=== PATIENT | male | born 1985 | race Caucasian/White ===

== ENCOUNTER 2018-09-14 09:18 | Outpatient (CLI) | payer OTHER, SELFPAY ==
[2018-09-14 11:11] LABS: TSH (W/Ref FT4) 2.13 uIU/mL (0.358-3.74)
[2018-09-19 14:52] LABS: Testosterone, Free 8.76 ng/dL (4.85-19.0); Testosterone, Total 337 ng/dL (240-950)
== END 2018-09-14 09:38 ==
PROVIDERS: PCP Family Medicine; Visit Provider Family Medicine
DX: N52.9 Male erectile dysfunction, unspecified (principal)
CPT/HCPCS: 36415; 84402; 84403; 84443

== ENCOUNTER 2019-10-07 14:51 | Emergency (ER) | payer OTHER, SELFPAY ==
[2019-10-07 14:58] VITALS: BP 137/93; PULSE 78; TEMP 37.2
--- NOTE | 2019-10-07 15:21 | W.ED.GENAD ---
Discharge Plan Disposition Patient Disposition: HOME Condition: Stable Discharge Details Chief Complaint: GI Bleed Clinical Impression: Internal hemorrhoid, bleeding Primary Care Provider: Mau Dewey ED Provider: Ever Lam Home Meds and New Rx's Prescriptions: New hydrocortisone acetate [Anusol-HC] 25 mg suppository 25 mg [place] BID 10 Days Qty: 20 RF: 0 Continued omeprazole 40 mg capsule,delayed release(DR/EC) 40 mg PO DAILY Qty: 90 RF: 3 sildenafil 100 mg tablet 100 mg PO DAILY PRN (Reason: sexual activity) Qty: 10 RF: 0 Discharge Instructions Instructions: Hemorrhoids (ED) Additional Instructions: Anusol as directed. [id number] stool softeners as directed. Plenty of fluids to avoid dehydration and be sure to increase your fiber in your diet. Avoid straining to move your bowels. Warm sits baths at least twice daily can also help with your symptoms. Please watch for new or worsening symptoms and return to the ER for any concerns. If conservative therapy does not treat your symptoms, I have given you the name and number of our local surgeon who may be able to provide definitive care for your hemorrhoids. Referrals: Ally Otto MD [ [facility]] - Medical Decision Making Patient presents with rectal bleeding and pain that began abruptly after straining to have a bowel movement yesterday. He appears well, nontoxic. Abdominal examination is unremarkable. He is hemodynamically stable. Given his presentation will obtain CBC, CMP, urinalysis, coags however most likely diagnosis is internal hemorrhoid and we discussed surgical consultation, sitz bath's, prescription medication, and avoiding constipation such as increasing fiber intake, fluid intake, oral stool softeners. I discussed the case with Dr. Llanos who saw the patient in the ER. Please see her note Medical Records Medical records reviewed: Yes I reviewed the patient's medical records. Lab Data Lab results reviewed: Yes I reviewed the patient's lab results. Lab results narrative: Laboratory Tests Range/Units 10/07/19 10/07/19 10/07/19 15:20 15:20 15:53 WBC (4.4-10.8) k/cumm 6.23 RBC (4.50-6.00) m/cumm 5.38 Hgb (13.5-17.5) g/dL 15.4 Hct (40.0-50.0) % 45.5 MCV (80-95) fL 84.6 MCH (27.0-33.0) pg 28.6 MCHC (32.0-36.0) g/dL 33.8 RDW (11.8-14.1) % 13.1 Plt Count (130-400) x1000/uL 278 MPV (8.0-11.0) fL 10.7 Immature Gran % % 0.2 Neutrophils % 60.4 Lymphocytes % 26.0 Monocytes % 10.1 Eosinophils % 3.0 Basophils % 0.3 Absolute Neutrophils (1.2-6.7) k/cumm 3.76 Absolute Lymphocytes (1.2-3.4) k/cumm 1.62 Absolute Monocytes (0.11-0.7) k/cumm 0.63 Absolute Eosinophils (0.0-0.7) k/cumm 0.19 Absolute Basophils (0.0-0.2) k/cumm 0.02 PT (9.3-11.0) sec 10.4 INR (0.9-1.1) 1.0 Sodium (136-145) mmol/L 137 Potassium (3.5-5.1) mmol/L 4.4 Chloride (98-107) mmol/L 103 Carbon Dioxide (21.0-32.0) mmol/L 26.6 Anion Gap (3-11) mmol/L 7.4 BUN (7-18) mg/dL 19 H Creatinine (0.70-1.30) mg/dL 0.91 Estimated GFR/1.73 m2 (mL/min/1.73m2) >= 60.00 Glucose (74-106) mg/dL 100 Calcium (8.5-10.1) mg/dL 9.2 Total Bilirubin (0.2-1.0) mg/dL 1.4 H AST (15-37) U/L 22 ALT (16-63) U/L 30 Alkaline Phosphatase (46-116) U/L 61 Total Protein (6.4-8.2) g/dL 7.4 Albumin (3.4-5.0) g/dL 4.1 Lipase (73-393) U/L 131 HPI General Mode of arrival: ambulatory. Date/Time Provider Initiated Documentation: 10/07/19 14:59. Limitations to Documentation: no limitations. Information obtained by: patient. HPI Narrative: 33-year-old gentleman with history of GERD, smoking/vaping, presents to the ER with feeling lightheaded and generally weak, bright red blood in his stool, that began yesterday. Pain is only in his rectum, primarily when he has a bowel movement. Was an 8 out of 10 yesterday, now is a 5 out of 10. He denies any abdominal pain whatsoever. Patient reports this all began yesterday, he was feeling constipated, and had to strain to move his bowels. After he finished his bowel movement, he wiped himself a few times and then there is no more blood. He denies any history of known hemorrhoids. He denies recent illness or trauma. Denies any fever, chest pain, shortness of breath, cough, pain in his back, dysuria, hematuria. Denies diarrhea, black tarry stools, or regular constipation. Related Data Home Medications Medication Instructions Recorded Confirmed sildenafil 100 mg tablet 100 mg PO DAILY PRN #10 tab 06/11/19 08/14/19 hydrocortisone acetate [Anusol-HC] 25 mg AZ BID 10 Days #20 each 10/07/19 Previous Rx's Medication Instructions Recorded sildenafil 100 mg tablet 100 mg PO DAILY PRN #10 tab 06/11/19 hydrocortisone acetate [Anusol-HC] 25 mg AZ BID 10 Days #20 each 10/07/19 Allergies Allergy/AdvReac Type Severity Reaction Status Date / Time codeine Allergy Intermediate rash Verified 10/07/19 16:07 penicillin G Allergy Intermediate nausea, GI Verified 10/07/19 16:07 disturbances Influenza Virus Vaccines AdvReac Severe Severe Verified 10/07/19 16:07 Sickness cherries Allergy Severe anaphylaxis Uncoded 10/07/19 16:07 General Stated Complaint: GI Bleed CASIMIRO: 4 Review of Systems Constitutional Constitutional: Denies fatigue, Denies fever(s), Denies headache(s) and Denies weakness Eyes Eyes: Denies change in vision ENT Ears, Nose, Mouth, and Throat: Denies headache(s) Cardiovascular Cardiovascular: Denies chest pain and Denies dyspnea Respiratory Respiratory: Denies cough and Denies dyspnea Gastrointestinal Gastrointestinal: Denies abdominal pain, Denies melena, Reports hematochezia, Reports constipation, Denies diarrhea, Denies nausea and Denies vomiting Genitourinary Genitourinary: Denies hematuria and Denies dysuria Musculoskeletal Musculoskeletal: Denies back pain, Denies numbness and Denies tingling Integumentary/Breasts Skin/Breast: Denies rash Neurologic Neurologic: Denies headache(s), Denies numbness, Denies tingling and Denies weakness Endocrine Endocrine: Denies fatigue Hematologic/Lymphatic Hematologic/Lymphatic: Denies easy bleeding and Denies easy bruising [facility] Medical History GERD without esophagitis (Acute) Hypersomnia (Acute) JULIA (obstructive sleep apnea) (Chronic) Pilonidal cyst (Acute) Snoring (Acute) STD (male) (Acute) Tobacco use disorder (Acute) Family History Mother Hypertension Father Prostate cancer Social History Smoking/Tobacco Use Status: Current every day Tobacco Type: e-cigarettes Smokeless tobacco user: other Quit status: considering quitting Alcohol Intake: former Drug use: Never Substance use type: does not use Caregiver/Support person: No Household members: spouse Number of Children: 2 Education Level: high school current occupation: [employer] in [employer] Do you think of yourself as: straight/heterosexual Current gender identity: male What is your relationship status?: Panel score (0-1 are the most socially isolated patients): 1 What type of physical activity do you participate in: occasional exercise Seatbelt use: always Helmet use: No Drive intox or ride w/intox city driver: No Water heater temp set <120 deg: Yes Working smoke detector in home: Yes Fire extinguisher in home: Yes Carbon monox detector in home: Yes Firearms in home: No Do you feel safe at home: Yes Do you feel safe in your relationship?: Yes Exam Const General: cooperative, healthy appearing, comfortable and no acute distress Orientation: alert, awake and oriented x3 HENMT Head: normal to inspection, normocephalic and atraumatic Face and sinus: normal facial exam Mouth: moist mucous membranes Eyes Conjunctivae: conjunctivae normal Neck Neck: normal visual inspection, full ROM, trachea midline and supple Resp Effort & Inspection: normal respiratory effort and able to speak in complete sentences Auscultation: clear to auscultation bilaterally Cardio Rate: regular rate Rhythm: regular rhythm GI Inspection: normal to inspection and obesity Palpation: soft, not firm, no guarding, not rigid and nontender Auscultation: normal bowel sounds Rectal Exam: visual inspection normal, normal sphincter tone, prostate normal, heme positive stool and hemorrhoids (Internal, 6 o'clock position) Back/Spine/Pelvis Back: No back tenderness Skin General skin exam: no rashes or lesions noted Neuro General: patient alert, patient awake, moves all extremities and no focal motor deficits Sensory Exam: no sensory deficits noted Psych Appearance: grossly normal Mental Status: mental status grossly normal Course Vital Signs Vital signs: Vital Signs Temperature 37.2 C 10/07/19 14:58 Pulse 78 10/07/19 14:58 Blood Pressure 137/93 H 10/07/19 14:58 Temperature 37.2 C 10/07/19 14:58 Temperature Source Tympanic 10/07/19 14:58 Pulse 78 10/07/19 14:58 Respiratory Effort 10/07/19 15:02 Blood Pressure 137/93 H 10/07/19 14:58 Blood Pressure Position Sitting 10/07/19 14:58 Oxygen Delivery Method Room Air 10/07/19 14:58 Oxygen Flow Rate 0 10/07/19 14:58 Pain Level 5 10/07/19 14:58
[2019-10-07 15:40] LABS: Prothrombin Time 10.4 sec (9.3-11.0)
[2019-10-07 15:42] LABS: ALT 30 U/L (16-63); AST 22 U/L (15-37); Albumin 4.1 g/dL (3.4-5.0); Alkaline Phosphatase 61 U/L (46-116); Anion Gap 7.4 mmol/L (3-11); BUN 19 mg/dL (7-18); Bilirubin, Total 1.4 mg/dL (0.2-1.0); CO2 26.6 mmol/L (21.0-32.0); CREATININE 0.91 mg/dL (0.70-1.30); Calcium 9.2 mg/dL (8.5-10.1); Chloride 103 mmol/L (98-107); Glucose 100 mg/dL (74-106); Lipase 131 U/L (73-393); Potassium 4.4 mmol/L (3.5-5.1); Sodium 137 mmol/L (136-145); Total Protein 7.4 g/dL (6.4-8.2)
[2019-10-07 15:58] LABS: Abs Immature Grans 0.01 k/cumm (0.0-0.09); Absolute Basophil Count 0.02 k/cumm (0.0-0.2); Absolute Eosinophil Count 0.19 k/cumm (0.0-0.7); Absolute Lymphocyte Count 1.62 k/cumm (1.2-3.4); Absolute Monocyte Count 0.63 k/cumm (0.11-0.7); Absolute Neutrophil Count 3.76 k/cumm (1.2-6.7); Basophils % 0.3; HCT 45.5 % (40.0-50.0); HGB 15.4 g/dL (13.5-17.5); Immature Grans % 0.2 %; Mean Corp. HGB Concentration 33.8 g/dL (32.0-36.0); Mean Corpuscular Hemoglobin 28.6 pg (27.0-33.0); Mean Corpuscular Volume 84.6 fL (80-95); Mean Platelet Volume 10.7 fL (8.0-11.0); Monocytes % 10.1; Neutrophils % 60.4; Platelet Count 278 x1000/uL (130-400); RBC 5.38 m/cumm (4.50-6.00); RBC Distribution Width 13.1 % (11.8-14.1); White Blood Cell Count 6.23 k/cumm (4.4-10.8)
[2019-10-07] MEDS: Normal Saline 1,000 ML 1000 ML IV (16:14)
[2019-10-07] MEDS: Normal Saline Flush 10 ML SYR IVP (16:14)
[2019-10-07 16:38] LABS: Bilirubin Negative (Negative); Blood Negative (Negative); Clarity Clear (Clear); Glucose Negative (Negative); Ketones Negative (Negative); Leukocyte Esterase Negative (Negative); Nitrite Negative (Negative); Specific Gravity >= 1.030 (1.005-1.025); Urobilinogen 0.2 EU/dL (Up TO 0.2)
[2019-10-07 17:27] VITALS: BP 119/77; PULSE 69; TEMP 36.6; O2SAT 98
== END 2019-10-07 17:26 | disposition home or self-care (01) ==
PROVIDERS: Emergency Provider Physician Assistant; PCP Family Medicine
DX: K64.8 Other hemorrhoids (principal); R42 Dizziness and giddiness
CPT/HCPCS: 36415; 80053; 83690; 96360; 99284; 81003; 85025; 85610

== ENCOUNTER 2020-05-21 09:51 | Outpatient (CLI) | payer OTHER, SELFPAY ==
[2020-05-22 15:25] LABS: COVID-19 RT-PCR Result NEGATIVE (Negative)
== END 2020-05-21 10:11 ==
PROVIDERS: PCP Family Medicine; Visit Provider Student in an Organized Health Care Education/Training Program
DX: Z11.52 Encounter for screening for COVID-19 (principal)
CPT/HCPCS: U0003

== ENCOUNTER 2020-06-15 11:45 | Emergency (ER) | payer OTHER, SELFPAY ==
[2020-06-15 11:50] VITALS: BP 133/81; PULSE 89; RESP 18; TEMP 36.4; O2SAT 100
--- NOTE | 2020-06-15 12:15 | DI.RAD_ITS ---
EXAM: XR LUMBAR SPINE COMPLETE CLINICAL HISTORY: Back pain, lower. TECHNIQUE: 2D digital imaging was performed. COMPARISON: No exams were available for comparison FINDINGS: There are 5 lumbar type vertebral bodies. There is normal alignment. There is no spondylolysis or s pondylolisthesis. Small endplate osteophytes are seen at L3-L4. No acute fracture or subluxation. The bones are normally mineralized. Degenerative changes are seen at the L5-S1 facets. IMPRESSION: Mild degenerative changes in the lower lumbar spine. DATA REPOSITORY: RADIATION DOSE DELIVERED:
[2020-06-15] MEDS: Cyclobenzaprine 10 MG TAB PO (12:34)
--- NOTE | 2020-06-15 12:45 | ED.GENADUL_ITS ---
Discharge Plan Disposition Patient Disposition: HOME Condition: Stable Discharge Details Clinical Impression: Lumbago Primary Care Provider: Mau Dewye ED Provider: Fabiana Joshi Home Meds and New Rx's Prescriptions: New cyclobenzaprine 10 mg tablet 10 mg PO TID PRN (Reason: muscle spasm) Qty: 10 RF: 0 ibuprofen 600 mg tablet 600 mg PO TID PRN (Reason: pain) Qty: 20 RF: 0 lidocaine 5 % adhesive patch,medicated 1 patch topical DAILY PRNQty: 15 RF: 0 No Action omeprazole 40 mg capsule,delayed release(DR/EC) 40 mg PO DAILY Qty: 90 RF: 0 sildenafil 100 mg tablet 100 mg PO DAILY PRN (Reason: sexual activity) Qty: 10 RF: 0 Discharge Instructions Instructions: Low Back Strain (ED) Additional Instructions: Follow up with primary care provider in 3-5 days. Return to ED sooner if any worsening or concerns. Increase oral fluids. Alternate ice and heat, please take Tylenol or Ibuprofen with food every 4-6 hours as needed for pain and swelling. Return to the ED for any loss of bowel or bladder control if you feel like you cannot poop or pee, Stand Alone Forms: Work Release Referrals: Mau Dewey DO [Primary Care Provider] - Discharge Data Discharge Date/Time-TO BE ENTERED AT DEPARTURE: 06/15/20 14:22 Medical Decision Making 34-year-old obese male presents to the ER with chief complaint of lower back pain which has been in place since shoveling snow. He denies any red flags no loss of bowel or bladder control, no saddle anesthesia, denies any radiation into his thighs or lower extremities. X-ray L-spine ordered urinalysis to rule out bladder leukocytosis. Exam(s) a RAD:XR lumbar spine complete EXAM: XR LUMBAR SPINE COMPLETE CLINICAL HISTORY: Back pain, lower. TECHNIQUE: 2D digital imaging was performed. COMPARISON: No exams were available for comparison FINDINGS: There are 5 lumbar type vertebral bodies. There is normal alignment. There is no spondylolysis or spondylolisthesis. Small endplate osteophytes are seen at L3-L4. No acute fracture or subluxation. The bones are normally mineralized. Degenerative changes are seen at the L5-S1 facets. IMPRESSION: Mild degenerative changes in the lower lumbar spine. Discussed x-ray results with patient who verbalizes understanding. Urinalysis is largely within normal limits no evidence of UTI no leukocytes no blood no culture indicated at this time. Patient given prescription for Flexeril, was given a lidocaine patch here in department prior to discharge and a prescription for ibuprofen 600 mg as needed for pain, prescription was also written for lidocaine patch and discussed use on this as well. Instructed to follow-up with PCP, discuss strict return instructions and red flags patient verbalized understanding. HPI General Mode of arrival: ambulatory . Date/Time Provider Initiated Documentation: 06/15/20 11:50 . Limitations to Documentation: no limitations . Information obtained by: patient . HPI Narrative: 34 year old male presents to the ED with chief complaint of Lower back pain. No loss of bowel or bladder control, no saddle anesthesia, no radiation of pain. has only tried topical bio freeze at home. Related Data Home Medications Medication Instructions Recorded Confirmed sildenafil 100 mg tablet 100 mg PO DAILY PRN #10 tab 06/11/19 06/15/20 omeprazole 40 mg capsule,delayed 40 mg PO DAILY #90 cap 05/20/20 06/15/20 release cyclobenzaprine 10 mg PO TID PRN #10 tab 06/15/20 ibuprofen 600 mg PO TID PRN #20 tab 06/15/20 lidocaine 1 patch TOPICAL DAILY PRN #15 ea 06/15/20 Previous Rx's Medication Instructions Recorded sildenafil 100 mg tablet 100 mg PO DAILY PRN #10 tab 06/11/19 omeprazole 40 mg capsule,delayed 40 mg PO DAILY #90 cap 05/20/20 release cyclobenzaprine 10 mg PO TID PRN #10 tab 06/15/20 ibuprofen 600 mg PO TID PRN #20 tab 06/15/20 lidocaine 1 patch TOPICAL DAILY PRN #15 ea 06/15/20 Allergies Allergy/AdvReac Type Severity Reaction Status Date / Time codeine Allergy Intermediate rash Verified 06/15/20 11:54 penicillin G Allergy Intermediate nausea, GI Verified 06/15/20 11:54 disturbances Influenza Virus Vaccines AdvReac Severe Severe Verified 06/15/20 11:54 Sickness cherries Allergy Severe anaphylaxis Uncoded 06/15/20 11:54 General Stated Complaint: Nk/Back Pain CASIMIRO: 3 Review of Systems Narrative: Constitutional: Negative for weight loss, alert and oriented, well groomed, obese body habitus, appears uncomfortable. HEENT: Denies trauma, headaches, blurry vision, nasal discharge, sore throat, trouble swallowing. Chest: Denies chest pain, palpitations, irregular rhythm, hypertension. Respiratory: Denies Shortness of breath, cough, hemoptysis. GI: Denies abdominal pain, nausea, vomiting, diarrhea, constipation. : Denies dysuria, hematuria, flank pain, rectal bleeding. No loss of bowel or bladder control. Denies saddle anesthesia no problems urinating. Musculoskeletal: Complaining of lower back pain. Radiation to right hip, no radiation into his thighs or lower extremities. Neuro: Denies dizziness, blurry vision, weakness, syncope, headache or facial numbness. Does have full range of motion noted to bilateral lower extremities. Hematologic: Denies easy bruising, intolerance to heat or cold, hair loss. [facility] Medical History (Updated 06/15/20 @ 14:04 by Fabiana Joshi) GERD without esophagitis Hypersomnia JULIA (obstructive sleep apnea) Pilonidal cyst Snoring STD (male) Tobacco use disorder Family History (Updated 10/31/19 @ 12:17 by Zoila Lynch RN) Mother Hypertension Father Prostate cancer Maternal Grandmother Diabetes Social History (Updated 10/31/19 @ 12:16 by Zoila Lynch RN) Smoking/Tobacco Use Status: Current every day Tobacco Type: cigarettes Tobacco: How many years used: 2 Smokeless tobacco user: other Quit status: considering quitting Smoking risk assessment performed?: Yes Alcohol Intake: former Drug use: Never Substance use type: does not use Caregiver/Support person: No Household members: spouse Housing: house Number of Children: 2 Communication Needs: None Education Level: high school Do you need help understanding health information?: Rarely current occupation: [employer] in [employer] Pets and animals: No Sexually active: Yes Do you think of yourself as: straight/heterosexual Current gender identity: male What is your relationship status?: How often do you talk on the phone with friends or family?: once per week How often do you get together with friends or relatives?: once per week Panel score (0-1 are the most socially isolated patients): 1 What type of physical activity do you participate in: occasional exercise Jaylin/Orthodox: Anglican Special jaylin needs: No Agree to transfusion: Yes Seatbelt use: always Helmet use: No Drive intox or ride w/intox xm1 tank driver: No Water heater temp set <120 deg: Yes Working smoke detector in home: Yes Fire extinguisher in home: Yes Carbon monox detector in home: Yes Firearms in home: No Do you feel safe at home: Yes Do you feel safe in your relationship?: Yes Exam Narrative Exam Narrative: Constitutional: Alert and oriented x3. Appears stated age. Obese body habitus. Head: Normocephalic, no trauma. Eyes: Pupils PERRLA, Red reflex noted, EOM's intact. Eyelids symmetrical without lesions, discharge, or swelling. ENT: Bilateral TM's WNL, External ear normal to inspection, no mastoid TTP, swelling, or erythema, Nasal turbinates WNL, no nasal discharge. Normal dentition, Posterior pharynx WNL, no exudate. Chest: RRR, Normal S1, S2, distal pulses intact. Resp: Lungs clear to auscultation bilaterally, no wheezes, rales, or rhonchi. Musculoskeletal: Does have some midline L-spine tenderness with palpation, no step-off or crepitus palpated. He also has some paraspinous tenderness noted with palpation bilaterally, no lower extremity tenderness. Negative straight leg test bilaterally. Intact dorsal flexion and pedal flexion. Sensation equal lower bilateral extremities. Skin: No suspicious rashes or lesions. Capillary refill less than 2 sec. Neurologic: Cranial nerves II-XII intact. Alert and oriented x 3. DTR's intact. Hematologic/Lymphatic: No ecchymosis, no lymphadenopathy. Course Vital Signs Vital signs: Vital Signs Temperature 36.4 C L 06/15/20 11:50 Pulse 89 06/15/20 11:50 Respiratory Rate 18 06/15/20 11:50 Blood Pressure 133/81 06/15/20 11:50 Pulse Oximetry 100 06/15/20 11:50 Temperature 36.4 C L 06/15/20 11:50 Pulse 89 06/15/20 11:50 Respiratory Rate 18 06/15/20 11:50 Respiratory Effort Non-Labored 06/15/20 11:55 Blood Pressure 133/81 06/15/20 11:50 Blood Pressure Position Sitting 06/15/20 11:50 Pulse Oximetry 100 06/15/20 11:50 Oxygen Delivery Method Room Air 06/15/20 11:50 Oxygen Flow Rate 0 06/15/20 11:50 Pain Level 8 06/15/20 11:50
[2020-06-15] MEDS: traMADol 50 MG TAB PO (12:51)
[2020-06-15 13:23] LABS: Bilirubin Negative (Negative); Blood Negative (Negative); Clarity Cloudy (Clear); Glucose Negative (Negative); Ketones Negative (Negative); Leukocyte Esterase Negative (Negative); Nitrite Negative (Negative); Specific Gravity 1.025 (1.005-1.025); pH 7.5 (5-8)
[2020-06-15 14:12] VITALS: BP 133/81; PULSE 89; RESP 18; TEMP 36.4; O2SAT 100
[2020-06-15] MEDS: Lidocaine 5% Patch 1 PATCH TP (14:13)
== END 2020-06-15 14:22 | disposition home or self-care (01) ==
PROVIDERS: Emergency Provider Registered Nurse Emergency; PCP Family Medicine
DX: M54.5 Low back pain (principal); X50.3XXA Overexertion from repetitive movements, initial encounter; Y93.H1 Activity, digging, shoveling and raking
CPT/HCPCS: 99283; 72110; 81003; 99284

== ENCOUNTER 2021-04-22 10:55 | Outpatient (CLI) | payer OTHER, SELFPAY ==
--- NOTE | 2021-04-22 13:00 | NS.NUTBLAN_ITS ---
Sanjay was reviewed for Medical Nutrition Therapy for weight management and [place] [facility] [place] 5'9 283 lbs BMI: 42. Sanjay reports that he has gained 100 lbs in last 10 years and that he has tried several diets to lose weight- including the keto diet- with no long standing results. PMH: morbid obesity, JULIA, GERD, tobacco user. Sanjay had previously met with a bariatric surgeon about 2 years ago. He works 3, 12 hour days per week, the rest of the week he helps with his disabled son and . He does most of the cooking. Diet recall: breakfast sandwich, no lunch, pizza or take out at dinner. Sanjay is accompanied with his Hillary who is also interested in bariatric surgery. Session today focused on importance of smoking cessation with bariatric surgery as smokers have a very high risk of developing intestinal leaks post op. We also discussed ways to increase lean protein and non starchy vegetables into his diet. Provided written materials and meal plans. Sanjay states he wants to start cooking more and feeling better. In last year, he has been very tired and realizes that his weight is slowing him down. He plans to stop smoking by 05/08/21. During session, Sanjay also met with Stephen Fan (W) who will support him while he stops smoking and improves his health habits. Next appt. 05/27/21 at 11 am.
== END 2021-04-22 10:56 | disposition home or self-care (01) ==
LOC: DS 11:00
PROVIDERS: PCP Family Medicine; Visit Provider Dietitian, Registered
DX: E66.01 Morbid (severe) obesity due to excess calories (principal); Z68.41 Body mass index [BMI] 40.0-44.9, adult; Z71.3 Dietary counseling and surveillance
CPT/HCPCS: 97802

== ENCOUNTER 2021-05-27 02:14 | Outpatient (CLI) | payer OTHER, SELFPAY ==
--- NOTE | 2021-05-27 11:00 | NS.NUTBLAN_ITS ---
Sanjay returns for weight management in preparation for weight loss surgery. 5'9 285 lbs BMI 42. Up 2 lbs in last 30 days. PMH:JULIA, GERD. Has started to reduce tobacco products. Diet Recall: breakfast sandwich, noodles, pizza Exercise: no formal exercise Session today focused on how to read labels and reduce intake of simple carbs. Provided meal plans and examples of meals that will support his weight loss. Reports increased appetite with reduction in tobacco. No longer using [facility] services for smoking cessation. Discussed importance of exercise and ways to incorporate more movement in day. Provided with phone number for [facility] [place] bariatric program to sign up for introductory session in June. Follow up 06/24/21 at 11 am.
== END 2021-05-27 02:15 | disposition home or self-care (01) ==
LOC: DS 02:14
PROVIDERS: PCP Family Medicine; Visit Provider Dietitian, Registered
DX: E66.9 Obesity, unspecified (principal); Z68.41 Body mass index [BMI] 40.0-44.9, adult; Z71.3 Dietary counseling and surveillance
CPT/HCPCS: 97803

== ENCOUNTER 2021-06-29 04:19 | Outpatient (CLI) | payer OTHER, SELFPAY ==
--- NOTE | 2021-06-29 10:30 | NS.NUTBLAN_ITS ---
Sanjay was referred for Medical Nutrition Therapy for weight management and for bariatric surgery work up at [facility] [place].? 5'9? 290 lbs? BMI: 43. Has gained 5 lbs in last 3 months. ? PMH: morbid obesity, JULIA, GERD. Is enrolled in smoking cessation course with [facility]. Sanjay had previously met with a bariatric surgeon about 2 years ago. ? He works 3, 12 hour days per week, the rest of the week he helps with his disabled son and . ? He does most of the cooking. Session today focused on importance of including exercise to help him lose weight. He reports recent back injury at work and has an MRI next week to r/o spine issues. Some of his weight gain in last 3 months may be due to decrease in activity due to recent injury. Encouraged eating on a schedule and continuing to decrease simple sugars and increase complex carbs, lean protein and healthy fats. Sanjay is very positive about possibility of bariatric surgery helping him low significant weight. His goal weight is 190 lbs. He reports his PCP is in support of weight loss surgery. Sanjay and his Hillary have intro bariatric session with [facility] [place] on 07/09/21. Will continue to support in weight loss journey.
== END 2021-06-29 04:20 | disposition home or self-care (01) ==
LOC: DS 04:19
PROVIDERS: PCP Family Medicine; Visit Provider Dietitian, Registered
DX: E66.01 Morbid (severe) obesity due to excess calories (principal); Z68.41 Body mass index [BMI] 40.0-44.9, adult; Z71.3 Dietary counseling and surveillance
CPT/HCPCS: 97803

== ENCOUNTER 2021-07-08 03:29 | Outpatient (CLI) | payer OTHER, SELFPAY ==
--- NOTE | 2021-07-08 07:30 | DI.MRI_ITS ---
Exam(s) MR LUMBAR SPINE WO EXAM: MR LUMBAR SPINE WO CLINICAL HISTORY: Possible t12 or L1 compression fracture,ACUTE LOW BACK PAIN, M54.50. TECHNIQUE: Multiplanar multisequence MRI of the Lumbar spine was performed. COMPARISON: CR XR LUMBAR SPINE COMPLETE from 06/15/2020 FINDINGS: Exam is somewhat limited by patient body habitus. Bones: The last intervertebral disc space is designated the L5/S1 level for the numbering purpose of this examination. The vertebral body heights are well maintained. Alignment is satisfactory. The ma rrow signal characteristics are unremarkable. Cord: The conus tip ends at the T12 level. It is of normal size and signal intensity. T12-L1: No disc herniations or bulges are present. No central spinal canal or neural foraminal stenos is. L1-2: No disc herniations or bulges are present. No central spinal canal or neural foraminal stenosis . L2-3: No disc herniations or bulges are present. No central spinal canal or neural foraminal stenosis . L3-4: There is a left paracentral disc protrusion which causes moderate central canal stenosis and im pingement on the thecal sac. No significant neural foraminal narrowing. L4-5: There is a small central disc protrusion without definite impingement on the thecal sac. No ce ntral spinal canal or neural foraminal stenosis. L5-S1: No disc herniations or bulges are present. No central spinal canal or neural foraminal stenosi s. Soft tissues: The visualized SI joints and sacrum are well maintained. The paraspinal soft tissues ar e unremarkable. IMPRESSION: Large left paracentral disc herniation at L3-4. Small central disc protrusion at L4-5. No evidence of compression fracture. DATA REPOSITORY:
== END 2021-07-08 03:49 ==
LOC: DI 03:29
PROVIDERS: PCP Family Medicine; Visit Provider Family Medicine
DX: M54.50 Low back pain, unspecified (principal); M51.16 Intervertebral disc disorders with radiculopathy, lumbar region
CPT/HCPCS: 72148

== ENCOUNTER 2021-08-30 05:33 | Outpatient (CLI) | payer OTHER, SELFPAY ==
--- NOTE | 2021-08-30 13:30 | NS.NUTBLAN_ITS ---
Sanjay returns for weight management education. Wt: 298 lbs -up 1 lbs since last appointment in July 2021. Sanjay is unclear if he wants to pursue weight loss surgery. He has paperwork he needs to complete and send in. Does not want to discuss weight loss surgery or weight management strategies today. . Today he brought his son Reginaldo and he was preoccupied with him most of visit. Attempted to review dietary changes needed for weight loss, but not focused on conversation. No follow up planned at this time.
== END 2021-08-30 05:34 | disposition home or self-care (01) ==
LOC: DS 05:34
PROVIDERS: PCP Family Medicine; Visit Provider Dietitian, Registered
DX: E66.01 Morbid (severe) obesity due to excess calories (principal); Z71.3 Dietary counseling and surveillance
CPT/HCPCS: 97803

== ENCOUNTER 2022-01-12 04:13 | Outpatient (CLI) | payer OTHER, SELFPAY ==
[2022-01-12 10:15] LABS: ALT 33 U/L (16-63); AST 15 U/L (15-37); Alkaline Phosphatase 56 U/L (46-116); Anion Gap 8.2 mmol/L (3-11); BUN 19 mg/dL (7-18); CO2 27.8 mmol/L (21.0-32.0); Calcium 8.7 mg/dL (8.5-10.1); Calculated LDL 133 mg/dL (<100); Chloride 107 mmol/L (98-107); Cholesterol 184 mg/dL (<200); Estimated GFR 99.41 (mL/min/1.73m2); Glucose 99 mg/dL (74-106); HDL Cholesterol 36 mg/dL (40-60); Potassium 4.2 mmol/L (3.5-5.1); Sodium 143 mmol/L (136-145); Total Protein 7.2 g/dL (6.4-8.2); Triglyceride 76 mg/dL (<150)
[2022-01-13 09:24] LABS: HIV-1/2 Ag & Ab Screen Negative (Negative)
[2022-01-13 10:02] LABS: Hepatitis C Ab w Rflx HCV PCR Negative (Negative)
== END 2022-01-12 04:14 | disposition home or self-care (01) ==
LOC: LBO 04:13
PROVIDERS: PCP Family Medicine; Visit Provider Family Medicine
DX: Z13.220 Encounter for screening for lipoid disorders (principal); Z11.3 Encounter for screening for infections with a predominantly sexual mode of transmission; Z11.59 Encounter for screening for other viral diseases; Z11.4 Encounter for screening for human immunodeficiency virus [HIV]; E66.9 Obesity, unspecified
CPT/HCPCS: 36415; 80053; 80061; 86803; 87389

== ENCOUNTER 2022-01-23 06:48 | Emergency (ER) | payer OTHER, SELFPAY ==
--- NOTE | 2022-01-23 07:05 | ED.GENADUL_ITS ---
Discharge Plan Disposition Patient Disposition: STILL A PATIENT Condition: Improving Discharge Details Clinical Impression: URI, acute Primary Care Provider: Mau Dewey ED Provider: Juwan Castro Home Meds and New Rx's Prescriptions: New albuterol sulfate 90 mcg/actuation aerosol powdr breath activated 2 inh inhalation Q6H PRN (Reason: shortness of breath or wheezing) Qty: 1 0RF No Action bupropion HCl 150 mg tablet sustained-release 12 hr See Rx Instructions PO DAILY Qty: 180 1RF Rx Instructions: T1 tab for 3 days, then t1 tab BID; plan to quit smoking by day 7 PO daily; ibuprofen 600 mg tablet 600 mg PO TID PRN (Reason: pain) Qty: 90 3RF Wegovy 0.25 mg/0.5 mL pen injector 0.25 mg subcut QWEEK Qty: 2 0RF Rx Instructions: administer weeks 1 through 4 of therapy sildenafil 100 mg tablet 100 mg PO DAILY PRN (Reason: sexual activity) Qty: 30 3RF Rx Instructions: administer 30 minutes to 4 hours before activity Discharge Instructions Instructions: Upper Respiratory Infection (ED) Additional Instructions: Please follow-up with your primary care physician. Please return to the emerg ency department you have any worsening symptoms. Medical Decision Making 36-year-old male history of chronic smoking, presents with dry cough over the past 4 days, of note and son have similar symptoms. Patient is nontoxic speaking full sentences no respiratory distress. Does have mild expiratory wheeze bilaterally. Likely viral URI. Low suspicion for pneumonia. Will treat with dexamethasone and nebulized albuterol/ipratropium. Home with care instructions and close follow-up. HPI General Date/Time Provider Initiated Documentation: 01/23/22 07:03 . HPI Narrative: 36-year-old male history of chronic smoking, presents with dry cough for the past 4 days of note his and son have similar symptoms. Related Data Home Medications Medication Instructions Recorded Confirmed sildenafil 100 mg tablet 100 mg PO DAILY PRN sexual 04/06/21 07/12/21 activity #30 tabs bupropion HCl 150 mg tablet,12 hr See Rx Instructions PO DAILY #180 01/04/22 01/04/22 sustained-release tabs ibuprofen 600 mg tablet 600 mg PO TID PRN pain #90 tabs 01/04/22 01/04/22 semaglutide (weight loss) 0.25 0.25 mg (0.5 mL) subcut QWEEK #2 mL 01/04/22 01/04/22 mg/0.5 mL subcutaneous pen injector (Wegovy) albuterol sulfate 90 mcg/actuation 2 inh inhalation Q6H PRN shortness 01/23/22 breath activated powder inhaler of breath or wheezing #1 ea Previous Rx's Medication Instructions Recorded sildenafil 100 mg tablet 100 mg PO DAILY PRN sexual 04/06/21 activity #30 tabs bupropion HCl 150 mg tablet,12 hr See Rx Instructions PO DAILY #180 01/04/22 sustained-release tabs ibuprofen 600 mg tablet 600 mg PO TID PRN pain #90 tabs 01/04/22 semaglutide (weight loss) 0.25 0.25 mg (0.5 mL) subcut QWEEK #2 mL 01/04/22 mg/0.5 mL subcutaneous pen injector (Wegovy) albuterol sulfate 90 mcg/actuation 2 inh inhalation Q6H PRN shortness 01/23/22 breath activated powder inhaler of breath or wheezing #1 ea Allergies Allergy/AdvReac Type Severity Reaction Status Date / Time codeine Allergy Intermediate rash-[place] Verified 01/04/22 08:44 [facility] penicillin V Allergy Intermediate vomiting Verified 01/04/22 08:46 Influenza Virus Vaccines AdvReac Severe Severe Verified 01/04/22 08:44 Sickness-[facility] varenicline [From Chantix] AdvReac Severe Aggression Verified 01/04/22 08:44 cherries Allergy Severe anaphylaxis Uncoded 01/04/22 08:44 General CASIMIRO: 3 Review of Systems Narrative: Review of Systems Constitutional: negative Eyes: negative ENT: negative Cardiovascular: negative Respiratory: Cough Gastrointestinal: negative : negative Musculoskeletal: negative Skin: negative Neurologic: negative Psych: negative PFSH All Active Problems (Updated 01/23/22 @ 07:09 by Juwan Castro MD) URI, acute (Acute) Adult BMI 40.0-44.9 kg/sq m (Acute) Lumbar spondylitis (Acute) Sacroiliac dysfunction (Acute) Myofascial low back pain (Acute) Herniation of intervertebral disc of lumbar region (Acute) Acute low back pain (Acute) Obesity (Chronic) JULIA (obstructive sleep apnea) (Chronic) Tobacco use disorder (Acute) GERD without esophagitis (Acute) Hypersomnia (Acute) Medical History (Updated 01/23/22 @ 07:09 by Juwan Castro MD) Pilonidal cyst Snoring STD (male) Family History Mother Hypertension Father Prostate cancer Maternal Grandmother Diabetes Social History (Updated 02/08/21 @ 13:21 by Jordyn Gunderson LPN) Smoking/Tobacco Use Status: Current every day Tobacco Type: cigarettes Tobacco: How many years used: 2 Smokeless tobacco user: other Quit status: considering quitting Smoking risk assessment performed?: Yes Alcohol Intake: former Drug use: Never Substance use type: does not use Caregiver/Support person: No Household members: spouse Housing: house Number of Children: 2 Communication Needs: None Education Level: college Details: has had greater than 1 year of college Do you need help understanding health information?: Rarely current occupation: [employer] in [employer] Pets and animals: No Sexually active: Yes Do you think of yourself as: straight/heterosexual Current gender identity: male What is your relationship status?: How often do you talk on the phone with friends or family?: once per week How often do you get together with friends or relatives?: once per week Panel score (0-1 are the most socially isolated patients): 1 What type of physical activity do you participate in: occasional exercise Jaylin/Taoism: Denominational Special jaylin needs: No Agree to transfusion: Yes Seatbelt use: always Helmet use: No Drive intox or ride w/intox front end driver: No Water heater temp set <120 deg: Yes Working smoke detector in home: Yes Fire extinguisher in home: Yes Carbon monox detector in home: Yes Firearms in home: No Do you feel safe at home: Yes Do you feel safe in your relationship?: Yes Exam Narrative Exam Narrative: Physical Examination General: alert, awake, cooperative, resting comfortably, no acute distress HEENT: normocephalic, atraumatic; PERRL, EOM intact, conjunctiva normal; no nasal discharge; moist mucous membranes, oral and pharyngeal mucosa normal, tolerating secretions Neck: supple, trachea midline; full ROM Chest: normal to inspection Respiratory: normal respiratory effort, speaking in full sentences, bilateral mild expiratory wheeze Cardiac: regular rate, regular rhythm, S1S2 intact, no murmurs rubs or gallops GI: abdomen soft, non-tender, non-distended; no palpable mass or hepatosplenomegaly Skin: no lesions, rashes or trauma appreciated Neuro: AAOx3, normal speech, moving all extremities Psych: Appropriate mood and affect
[2022-01-23 07:25] VITALS: BP 125/83; PULSE 87; TEMP 36.8; O2SAT 94
[2022-01-23] MEDS: Albuterol/Ipratropium 3 ML UPD VIAL UPD (07:32)
[2022-01-23] MEDS: Dexamethasone 10 MG/ML VIAL IVP (07:33)
[2022-01-23 07:55] VITALS: PULSE 89; O2SAT 94
== END 2022-01-23 07:54 | disposition home or self-care (01) ==
PROVIDERS: Emergency Provider Emergency Medicine; PCP Family Medicine
DX: J06.9 Acute upper respiratory infection, unspecified (principal); F17.210 Nicotine dependence, cigarettes, uncomplicated
CPT/HCPCS: 94640; 96374; 99284; J1100; J7620

== ENCOUNTER 2022-01-25 12:58 | Outpatient (CLI) | payer OTHER, SELFPAY ==
--- NOTE | 2022-01-25 12:00 | DI.RAD_ITS ---
Exam(s) XR CHEST 2V PA LATERAL EXAM: XR CHEST 2V PA LATERAL CLINICAL HISTORY: R/O pneumonia, COVID negative J20.9 BRONCHITIS. TECHNIQUE: 2D digital imaging was performed. COMPARISON: No exams were available for comparison FINDINGS: 2 views: Heart size is normal. The mediastinum is not widened. Lungs are clear. No infiltrates nor pleural effusions. IMPRESSION: No acute pulmonary findings. DATA REPOSITORY: RADIATION DOSE DELIVERED:
== END 2022-01-25 13:18 ==
LOC: DI 13:01
PROVIDERS: PCP Family Medicine; Visit Provider Family Medicine
DX: J20.9 Acute bronchitis, unspecified (principal)
CPT/HCPCS: 71046